=== PATIENT | female | born 1990 | race Caucasian/White ===

== ENCOUNTER 2019-05-05 17:56 | Day surgery (SDC) | payer MEDICAID ==
[~2019-05-05] VITALS: Ht 162.6 cm; Wt 68.2 kg
[2019-05-05] VITALS (8 sets, daily range): BP systolic 105–126; BP diastolic 56–68; PULSE 97–108; TEMP 98.1–98.7
--- NOTE | 2019-05-05 18:00 | NUR ---
Pt arrived on unit ambulatory for direct admit for D&C escorted by her . Pt oriented to room, bed and call light within reach. Pt changed in to hospital gown. Vitals done. Consents signed. IV started with LR infusing. See EMAR for details.
[2019-05-05 19:09] LABS: BASO % 0.3 % (0.0-2.0); EOS % 0.1 % (0-4.0); GRAN # 9.9 (1.4-6.5); GRAN % 82.3 % (42.2-75.2); LYMPH # 1.5 (1.2-3.4); LYMPH % 12.6 % (20.0-51.0); MEAN CELL VOLUME 88 fl (80.0-100.0); MEAN CORPUSCULAR HGB CONC 34 g/dl (33.0-37.0); MEAN PLATELET VOLUME 8.7 fl (7.4-10.4); MONO # 0.5 (0.1-0.6); MONO % 3.9 % (1.7-9.3); PLATELET COUNT 152 K/mm3 (130-400); RED BLOOD COUNT 2.94 M/mm3 (4.10-5.30)
[2019-05-05 19:22] LABS: BILIRUBIN,TOTAL 0.5 mg/dL (0.0-1.0); CREATININE, serum 0.56 (0.52-1.25); POTASSIUM 3.7 mmol/L (3.4-5.0)
[2019-05-05 19:26] LABS: HEMATOCRIT 25.9 % (37.0-47.0); HEMOGLOBIN 8.8 g/dl (12.5-16.0); MEAN CORPUSCULAR HEMOGLOBIN 30 pg (27.0-31.0)
[2019-05-05] MEDS ORDERED: NATURAL IRON65 MG (20:52)
[2019-05-05] MEDS ORDERED: VTAMINC250TA (20:52)
[2019-05-05] MEDS ORDERED: PRENATAL (20:52)
--- NOTE | 2019-05-05 21:45 | NUR ---
Discharge home instructions and order received from Dr Forbes. Information reviewed with pt and at the bedside. Both verbalized an understanding, agreed with the plan and state no questions or concerns at this time.
== END 2019-05-05 21:55 | disposition home or self-care (01) ==
LOC: LDRO 17:56 → OB 17:58 → LDRO 21:55
PROVIDERS: Obstetrics & Gynecology
DX: O72.2 Delayed and secondary postpartum hemorrhage (principal); N71.0 Acute inflammatory disease of uterus; Z98.891 History of uterine scar from previous surgery
CPT/HCPCS: OP; J1885; J2210; J2405; J2704; J3010; J7120

== ENCOUNTER 2019-10-17 14:14 | Inpatient (IN) | payer MEDICAID ==
[~2019-10-17] VITALS: Ht 162.6 cm; Wt 68.2 kg
[2019-10-17] VITALS (13 sets, daily range): BP systolic 98–144; BP diastolic 51–87; PULSE 64–83; TEMP 97.9–98.6
[~2019-10-17 14:14] MED LIST: NATURAL IRON65 MG; PRENATAL; VTAMINC250TA
--- NOTE | 2019-10-17 14:40 | NUR ---
Patient ambulates to LR2 with spouse, changed into gown. Patient sent from office per Dr. Forbes to be admitted for demise. Patient states "went to [facility] to get my SONO done and they could not find heart beat and we came in today because my was at work and could not come with me if I came yesterday, I have not had any signs/symptoms at all, they said I was measuring 15 weeks but by dates should be 18 weeks" "I delivered my last baby at home spontaneously and it was we think about 11-12weeks, I then got sick and had to come in and get a D&C done". Patient denies any contractions/cramping, leaking of fluid, vaginal bleeding. Plan of care discussed, consents gone over and signed, assessment completed, demise packet given. 1450: IV started in left hand and flushed. Lab at bedside drawing labs. 1500: Dr. Forbes at nurses station and updated and orders clarified. 1530: Cytotec induction discussed and patient agrees to plan, Patient states "I just want it to go fast and to get closure". SVE-closed/-3 and Cytotec 200mcg placed vaginally and patient tolerates well. Patient resting on left side. Discussed plan of care. Patient/Spouse state " We would like to see baby and would like to take baby home with us" This RN informs patient that we can do that and we have a baby box and items if they needed and patient states they will need those items as they did not bring anything. 1740: Patient states that she had started feeling random cramping/pains starting around 1630. Bright red blood noted on perineum. Patient voids and blood noted in toilet. Updated patient to notify me if having more discomfort or bleeding. Dr. Forbes at nurses station and updated and no new orders given.
[2019-10-17 15:50] LABS: ALBUMIN 4.3 gm/dL (3.5-5.0); BILIRUBIN,TOTAL 0.4 mg/dL (0.0-1.0); CALCIUM 9.1 mg/dL (8.4-10.2); CREATININE, serum 0.49 (0.52-1.25); POTASSIUM 3.9 mmol/L (3.4-5.0); TOTAL PROTEIN 7.5 gm/dL (6.4-8.2)
[2019-10-17 16:20] LABS: THYROID STIMULATING HORMONE 1.24 uIU/mL (0.465-4.680)
--- NOTE | 2019-10-17 18:30 | NUR ---
Report received, care assumed. Patient rest in bed with at side. Patient states that she has had some bright red vaginal bleeding and some occasional cramping but states that nothing is consistent. Plan of care reviewed.
[2019-10-17 20:08] LABS: BASO % 0.3 % (0.0-2.0); EOS % 0.7 % (0-4.0); GRAN # 3.7 (1.4-6.5); GRAN % 63.8 % (42.2-75.2); HEMOGLOBIN 11.5 g/dl (12.5-16.0); LYMPH # 1.8 (1.2-3.4); LYMPH % 30.1 % (20.0-51.0); MEAN CELL VOLUME 83 fl (80.0-100.0); MEAN CORPUSCULAR HEMOGLOBIN 28 pg (27.0-31.0); MEAN CORPUSCULAR HGB CONC 33 g/dl (33.0-37.0); MONO # 0.3 (0.1-0.6); MONO % 4.8 % (1.7-9.3); PLATELET COUNT 205 K/mm3 (130-400); RED BLOOD COUNT 4.14 M/mm3 (4.10-5.30); REDCELL DISTRIBUTION WIDTH-CV 15.3 % (11.5-14.5)
[2019-10-17 20:17] LABS: HEMATOCRIT 34.4 % (37.0-47.0)
--- NOTE | 2019-10-17 20:35 | NUR ---
2019 Patient up to the bathroom. While sitting on the toilet the patient states that "something is coming out". Bulgy bag of water visible out of vagina. 2021 Dr. Forbes called and on her way to the hospital 2024 Bag of benitez ruptures while patient is still sitting on the toilet. Baby not noted to be in the bag of benitez or vaginal os. Patient assisted to the bed. 2034 Dr. Forbes at bedside. SVE performed. Cervix dilated to 2 cm. Patient states that she continues to feel intermittent cramping but not consistent contractions. Plan of care reviewed with patient and spouse.
--- NOTE | 2019-10-17 23:30 | NUR ---
Patient resting in bed, reports contractions q5 minutes, SVE 2/-3, 3rd dose of cytotec placed in posterior vagina. Plan of care reviewed.
[2019-10-18] VITALS (13 sets, daily range): BP systolic 84–122; BP diastolic 46–89; PULSE 61–85; TEMP 98.4
--- NOTE | 2019-10-18 01:00 | NUR ---
Patient c/o feeling more regular cramping, SVE /-2.
--- NOTE | 2019-10-18 02:00 | NUR ---
0158 Patient calls out with c/o feeling pressure. SVE done and baby felt in the vagina. Dr. Forbes called for delivery and on her way to the hospital. 0200 Spontaneous vaginal delivery of non-viable male . Cord cut and placed in blankets. 0205 Large amount of vaginal bleeding noted, placenta not delivered, IVF bolus started. 0213 Dr. Forbes to room, patient prepped for delivery of placenta. 0252 Delivery of placenta by Dr. Forbes. Pitocin started at 333ml/hr per orders and protocol. Rosa BOOTHE.
--- NOTE | 2019-10-18 05:30 | NUR ---
Patient ambulates to bathroom with assist. Voids 400cc of urine without difficulty. Patient changes into her own clothes. She denies feeling dizzy or lightheaded.
[2019-10-20 10:29] LABS: LUPUS ANTICOAGULANT PT 13.4 Seconds (())
[2019-10-21 05:59] LABS: BETA-2 GPI IGG AABS <20.0 CU (<=20.0); BETA-2 GPI IGM AABS <20.0 CU (<=20.0)
[2019-10-21 07:47] LABS: RPR (VDRL) XXX
== END 2019-10-18 06:00 | disposition home or self-care (01) | DRG 832 ==
LOC: LDR 14:14
PROVIDERS: ADMIT Obstetrics & Gynecology
PROC: 10E0XZZ Delivery of Products of Conception, External Approach (ICD-10-PCS; principal; 2019-10-18)
PROC: 3E0P7GC Introduction of Other Therapeutic Substance into Female Reproductive, Via Natural or Artificial Opening (ICD-10-PCS; 2019-10-18)
DX: O36.4XX0 Maternal care for intrauterine death, not applicable or unspecified (principal); O23.592 Infection of other part of genital tract in pregnancy, second trimester; Z3A.16 16 weeks gestation of pregnancy
CPT/HCPCS: J2590; J7120

== ENCOUNTER 2020-10-19 18:58 | Inpatient (IN) | payer MEDICAID ==
[2020-10-19] VITALS (11 sets, daily range): BP systolic 123–157; BP diastolic 75–111; PULSE 75–99; TEMP 98.1–98.2
[~2020-10-19] VITALS: Ht 162.6 cm; Wt 80.5 kg
--- NOTE | 2020-10-19 19:00 | NUR ---
190- PATIENT WHEELED UP TO UNIT WITH BY HER SIDE. PATIENT CHANGED INTO CLEAN GOWN AND THEN PUT ON MONITOR AND CHECK. 1904- EFM AND TOCO ON AND TRACING. PATIENT REPORT GFM, ROSE MARY CONSISTENTLY AROUND 1730, NO BLEEDING, UNSURE OF LOF. 1909- PATIENT INTACT, 4-5/70/-2. PATIENT ASSESSED AND VITALS TAKEN. THIS RN CALLED PROVIDER WITH UPDATE AND PATIENT WAS ADMITTED. SEE PHYSICIAN NOTIFICATION.
[2020-10-19 19:48] LABS: BASO % 0.3 % (0.0-2.0); EOS % 0.4 % (0-4.0); GRAN # 8.9 (1.4-6.5); GRAN % 78.5 % (42.2-75.2); HEMATOCRIT 35.7 % (37.0-47.0); HEMOGLOBIN 12.6 g/dl (12.5-16.0); LYMPH # 1.8 (1.2-3.4); LYMPH % 16.1 % (20.0-51.0); MEAN CELL VOLUME 85 fl (80.0-100.0); MEAN CORPUSCULAR HEMOGLOBIN 30 pg (27.0-31.0); MEAN CORPUSCULAR HGB CONC 35 g/dl (33.0-37.0); MEAN PLATELET VOLUME 9.4 fl (7.4-10.4); MONO # 0.5 (0.1-0.6); MONO % 4.2 % (1.7-9.3); PLATELET COUNT 169 K/mm3 (130-400); RED BLOOD COUNT 4.21 M/mm3 (4.10-5.30)
[2020-10-19] MEDS ORDERED: PRENATAL TABLET PO (19:48)
--- NOTE | 2020-10-19 20:38 | NUR ---
2037- PATIENT CALLS OUT THAT HER WATER BROKE. THIS RN TO BEDSIDE. CLEAR FLUID NOTED IN THE BED. PATIENT FEELING VERY PUSHY. 2039- SVE /-1. CALLED PROVIDER, SEE PHYSICIAN NOTIFICATION. THIS RN REMAINS AT BEDSIDE WITH PATIENT. THIS RN ALSO CALLS CHARGE NURSE AND NURSERY NURSE TO LET THEM KNOW OF THIS RECENT UPDATE. 2049- OF VIABLE FEMALE CAUGHT BY RN. INFANT CLEANED UP AND DRIED OFF BY LABOR AND NURSERY NURSE. 2050- DR. LYONS TO BEDSIDE. 2054- OF PLACENTA. PATIENT INTACT PER PROVIDER. PITOCIN STARTED PER PROTOCOL AT 333ML/HR. FUNDUS FIRM AND D1 WITH SMALL AMOUNT OF LOCHIA NOTED. PATIENT AND ROOM CLEANED UP AND PUT BACK TOGETHER. NEW CHUX AND PERIPAD PLACED UNDER THE PATIENT. 2099 - RECOVERY STARTED. VITALS STABLE. FUNDUS FIRM AND D1 WITH SMALL LOCHIA NOTED.
[2020-10-20] VITALS (8 sets, daily range): BP systolic 101–159; BP diastolic 57–93; PULSE 75–89; TEMP 97.8–98.6
[2020-10-20] MEDS ORDERED: MOTRIN 800800 MG/TAB PO (16:14)
== END 2020-10-20 21:55 | disposition home or self-care (01) | DRG 807 ==
LOC: LDRO 18:58 → OB 19:20 → LDR 19:20 → OB 22:45
PROVIDERS: Obstetrics & Gynecology; ADMIT Obstetrics & Gynecology
PROC: 10E0XZZ Delivery of Products of Conception, External Approach (ICD-10-PCS; principal; 2020-10-19)
DX: O34.211 Maternal care for low transverse scar from previous cesarean delivery (principal); Z37.0 Single live birth; Z3A.39 39 weeks gestation of pregnancy
CPT/HCPCS: J2590; J7120